=== PATIENT | male | born 1950 | race Caucasian/White ===

== ENCOUNTER 2017-10-04 17:26 | Emergency (ER) | payer BC ==
[2017-10-04] MEDS ORDERED: Adacel (T-DAP) 0.5 ML VIAL ONE (17:40)
[2017-10-04] MEDS ORDERED: Lidocaine 1% w/Epinephrine 1:100K 30 ML VIAL ONE (17:40)
[2017-10-04] MEDS ORDERED: Bacitracin Zinc Ointment 30 gm TUBE ONE (18:00)
== END 2017-10-04 18:28 | disposition home or self-care (01) ==
LOC: SCSER 17:26
DX: S51.811A Laceration without foreign body of right forearm, initial encounter (principal); W26.8XXA Contact with other sharp object(s), not elsewhere classified, initial encounter
CPT/HCPCS: 12002; 90471; 90715; J2001

== ENCOUNTER 2017-10-17 09:22 | Emergency (ER) | payer BC | END 2017-10-17 09:37 | disposition home or self-care (01) | LOC: SCSER 09:22 | DX: S41.111D Laceration without foreign body of right upper arm, subsequent encounter (principal) ==